=== PATIENT | female | born 1980 | race Caucasian/White ===

== ENCOUNTER 2019-05-15 16:37 | Outpatient (CLI) | payer OTHER, SELFPAY ==
--- NOTE | ~2019-05-15 | XR_ITS ---
[[id number] ] INDICATION: Left rib pain TECHNIQUE: Frontal projection of the upper left ribs, frontal projection of the lower left ribs, obli que projection of all the left ribs, frontal inspiratory chest x-ray for interpretation. FINDINGS: There are no displaced rib fractures identified. There are no soft tissue abnormality see n. The lungs are clear. Calcified granuloma right midlung. IMPRESSION: 1:No displaced rib fractures. Reviewed, dictated and finalized at location A.
[2019-05-15 16:54] LABS: Basophils Absolute Auto 0.03 K/mm3 (0.00-0.10); Basophils Percent Auto 0.4 % (0.0-1.0); Eosinophils Absolute Auto 0.07 K/mm3 (0.02-0.50); Hematocrit 45.4 % (35.0-49.0); Hemoglobin 15.5 g/dL (12.0-15.0); Immature Granulocyte Absolute 0.02 K/mm3 (0.00-0.00); Immature Granulocyte Percent A 0.3 % (0.0-0.0); Lymphocytes Absolute Auto 2.02 K/mm3 (1.10-4.50); Lymphocytes Percent Auto 30.2 % (18.0-42.0); Mean Corpuscular HGB Conc 34.1 g/dL (32.0-36.0); Mean Corpuscular Hemoglobin 30.6 pg (27.0-31.0); Mean Corpuscular Volume 89.7 fL (78.0-102.0); Mean Platelet Volume 9.9 fl (9.2-11.8); Monocytes Absolute Auto 0.51 K/mm3 (0.10-0.90); Monocytes Percent Auto 7.6 % (2.0-11.0); Neutrophils Percent Auto 60.5 % (50.0-70.0); Platelet Count Result 302 K/mm3 (150-420); Red Blood Count 5.06 M/mm3 (4.20-5.40); White Blood Count 6.7 K/mm3 (4.8-10.8)
[2019-05-15 17:07] LABS: D Dimer 0.22 mg/L (0.19-0.50)
[2019-05-15 17:22] LABS: Alanine Aminotransferase 35 U/L (14-59); Alkaline Phosphatase 98 U/L (46-116); Anion Gap 12.4 mmol/L (7-16); Aspartate Amino Transferase 22 U/L (15-37); Bilirubin,Total 0.4 mg/dL (0.00-1.00); Blood Urea Nitrogen 9 mg/dL (7-18); Calcium 9.2 mg/dL (8.5-10.1); Carbon Dioxide 29 mmol/L (21-32); Chloride 104 mmol/L (98-108); Estimated Glomerular Filt Rate > 60; Glucose 101 mg/dL (70-99); Osmolality Calculated 290 mOsm/kg (285-295); Potassium 4.4 mmol/L (3.5-5.1); Sodium 141 mmol/L (136-145); Total Protein 7.4 g/dL (6.4-8.2)
== END 2019-05-15 16:38 | disposition home or self-care (01) ==
LOC: CHSLAB 16:43
PROVIDERS: PCP Family Medicine; Visit Provider Physician Assistant
DX: R06.02 Shortness of breath (principal); R07.81 Pleurodynia
CPT/HCPCS: 36415; 71101; 80053; 85025; 85380

== ENCOUNTER 2019-08-25 07:49 | Outpatient (CLI) | payer OTHER, SELFPAY ==
--- NOTE | ~2019-08-25 | US_ITS ---
US right upper quadrant DATE: 08/25/2019 08:24 INDICATION: Mid to right upper abdominal pain TECHNIQUE: Real-time imaging of liver, pancreas, gallbladder areas COMPARISON: None FINDINGS: There is a hyperechoic approximately 1.4 x 1.5 x 1.2 cm hepatic mass consistent with cavern ous hemangioma. The liver is otherwise unremarkable. Normal hepatopedal portal venous flow direction. No pancreatic mass lesion is evident. There are shadowing up to 8mm filling defects of the gallbladder neck consistent with cholelithiasis . No gallbladder wall thickening or pericholecystic fluid is evident. Negative sonographic Azevedo's s ign. The common bile duct measures 3 mm, normal. IMPRESSION: Cholelithiasis 1.5 cm hepatic cavernous hemangioma Reviewed, dictated and finalized at Location A. Reviewed, dictated and finalized at location B.
== END 2019-08-25 07:50 | disposition home or self-care (01) ==
PROVIDERS: PCP Family Medicine; Visit Provider Nurse Practitioner Psychiatric/Mental Health
DX: R10.11 Right upper quadrant pain (principal)
CPT/HCPCS: 76705

== ENCOUNTER 2019-09-20 10:44 | Outpatient (CLI) | payer OTHER, SELFPAY ==
[2019-09-20 11:02] LABS: Basophils Absolute Auto 0.02 K/mm3 (0.00-0.10); Basophils Percent Auto 0.4 % (0.0-1.0); Eosinophils Absolute Auto 0.05 K/mm3 (0.02-0.50); Eosinophils Percent Auto 0.9 % (1.0-6.0); Hematocrit 43.1 % (35.0-49.0); Hemoglobin 14.7 g/dL (12.0-15.0); Immature Granulocyte Absolute 0.02 K/mm3 (0.00-0.00); Immature Granulocyte Percent A 0.4 % (0.0-0.0); Immature Reticulocyte Fraction 8.4 % (2.0-16.52); Lymphocytes Absolute Auto 1.67 K/mm3 (1.10-4.50); Mean Corpuscular HGB Conc 34.1 g/dL (32.0-36.0); Mean Corpuscular Hemoglobin 31.3 pg (27.0-31.0); Mean Corpuscular Volume 91.9 fL (78.0-102.0); Mean Platelet Volume 10.4 fl (9.2-11.8); Monocytes Absolute Auto 0.44 K/mm3 (0.10-0.90); Monocytes Percent Auto 7.9 % (2.0-11.0); Neutrophils Absolute Auto 3.4 K/mm3 (1.7-7.2); Neutrophils Percent Auto 60.4 % (50.0-70.0); Platelet Count Result 269 K/mm3 (150-420); Red Blood Count 4.69 M/mm3 (4.20-5.40); Red Cell Distribution Width 11.9 % (11.6-14.4); Reticulocyte Hemoglobin Conten 36.3 pg (28.0-35.0); Reticulocyte Percent 1.83 % (0.50-1.50); Reticulocytes Absolute 0.09 M/mm3 (0.02-0.1); White Blood Count 5.6 K/mm3 (4.8-10.8)
[2019-09-20 12:27] LABS: Alanine Aminotransferase 58 U/L (14-59); Albumin Level 3.8 g/dL (3.4-5.0); Alkaline Phosphatase 91 U/L (46-116); Anion Gap 9 mmol/L (8-16); Aspartate Amino Transferase 31 U/L (15-37); Bilirubin,Total 0.6 mg/dL (0.00-1.00); Blood Urea Nitrogen 10 mg/dL (7-18); Calcium 8.8 mg/dL (8.5-10.1); Carbon Dioxide 26 mmol/L (21-32); Chloride 104 mmol/L (98-108); Cholesterol 156 mg/dL (0-200); Estimated Glomerular Filt Rate > 60; Ferritin 205 ng/mL (8-252); Glucose 98 mg/dL (70-99); HDL Direct 51 mg/dL (40-60); Iron 116 ug/dL (50-170); LDL Cholesterol Calculated 88 mg/dL (<130); Osmolality Calculated 287 mOsm/kg (285-295); Percent Iron Saturation 38 % (12-57); Potassium 4.4 mmol/L (3.5-5.1); Sodium 139 mmol/L (136-145); Thyroid Stimulating Hormone 1.39 uIU/mL (0.36-3.74); Total Protein 7.2 g/dL (6.4-8.2); Triglycerides 85 mg/dL (0-150); Vitamin B12 305 pg/mL (193-986)
[2019-09-20 12:29] LABS: Folic Acid > 20.0 ng/mL (8.6->20)
[2019-09-23 11:52] LABS: Vitamin D 25 Hydroxy 24 ng/mL (30-100)
== END 2019-09-20 10:45 | disposition home or self-care (01) ==
LOC: CHSLAB 10:46
PROVIDERS: PCP Family Medicine; Visit Provider Family Medicine
DX: R53.83 Other fatigue (principal); Z13.220 Encounter for screening for lipoid disorders; Z13.29 Encounter for screening for other suspected endocrine disorder; E55.9 Vitamin D deficiency, unspecified
CPT/HCPCS: 36415; 80053; 80061; 82306; 82607; 82728; 82746; 83540; 83550; 84443; 85025; 85046

== ENCOUNTER 2019-10-01 00:27 | Outpatient (CLI) | payer OTHER, SELFPAY ==
[2019-10-01 18:19] LABS: SARS-CoV-2 RNA PCR Negative
== END 2019-10-01 00:28 | disposition home or self-care (01) ==
LOC: ANHCOVIDDT 00:27
PROVIDERS: PCP Family Medicine; Visit Provider Internal Medicine Gastroenterology
DX: Z01.812 Encounter for preprocedural laboratory examination (principal); Z20.828 Contact with and (suspected) exposure to other viral communicable diseases
CPT/HCPCS: 87635; C9803; U0003

== ENCOUNTER 2019-10-03 01:30 | Day surgery (SDC) | payer OTHER, SELFPAY ==
[2019-09-29 08:51] VITALS: BMI 36.6
[2019-10-03 11:16] VITALS: BP 128/103; PULSE 97; RESP 16; TEMP 36.8; O2SAT 98; BMI 36.8
[2019-10-03] MEDS: LACTATED RINGERS 1,000 ML 150 ML IV CONT (11:32)
--- NOTE | 2019-10-03 12:01 | WPDANESEPPF ---
Anes - Initial Pre Proc Eval Procedure: Operation Date: 10/03/19 12:30 Proposed Procedures p Esophagogastroduodenoscopy & Screening Colonoscopy - Antoni Veliz MD Date/Time: 10/03/19 12:01 Surgeon: Antoni Veliz MD Pre Op Diagnosis: RUQ Pain/ Fam Hx Colon Ca Patient Data Age: 39 Gender: F Height: 5 ft 2 in Weight: 91.2 kg Last Vital Signs Temp 98.2 F 10/03/19 11:16 Pulse 97 10/03/19 11:16 Resp 16 10/03/19 11:16 BP 128/103 H 10/03/19 11:16 Pulse Ox 98 10/03/19 11:16 Allergies Allergy/AdvReac Type Severity Reaction Status Date / Time No Known Allergies Allergy Unknown Verified 10/03/19 11:16 Home Medications Medication Instructions Recorded Confirmed Type lisinopril 10 mg tablet 10 mg PO DAILY 09/04/19 10/03/19 History peg 3350-electrolytes 236 240 ml PO Q10M #4000 ml 09/23/19 Rx gram-22.74 gram-6.74 gram-5.86 gram solution ergocalciferol (vitamin D2) 1,250 mcg PO WEEKLY 09/29/19 10/03/19 History [Vitamin D2] Patient hx anesthesia problems: none Family hx anesthesia problems: none PMFSH Past Medical History Medical History (Updated 10/03/19 @ 12:03 by Abiodun Amor MD) Alternating constipation and diarrhea Cholelithiasis Family history of Forde syndrome Obesity RUQ pain Anes - Eval Final PreProcedure Day of Procedure 10/03/19 12:01 Patient weight: obese Heart: regular rate and rhythm Lungs: clear to auscultation Airway: Mallampati scale class II Neurological: alert and oriented Last oral intake: >/= 8 hours ASA classification: II Emergent: no Anesthetic plan: proceed Anesthesia type and monitoring: general GIVS and standard monitoring Informed Consent: The patient's anesthetic plan and its attendant risks and benefits were discussed with the patient/family/POA. Questions were solicited and answers provided to the satisfaction of the patient/family/POA.
--- NOTE | 2019-10-03 12:37 | WPDHPUPDATE1 ---
History and Physical Update Update Date/Time: 10/03/19 12:37 History and Physical has been reviewed, including an updated exam of the patient. There are NO changes in the patient's condition. Risks, benefits, and alternatives have been discussed and questions answered. Patient agrees to proceed with procedure.
[2019-10-03 13:03] VITALS: BP 111/77; PULSE 84; RESP 23; O2SAT 100
[2019-10-03 13:13] VITALS: BP 127/89; PULSE 76; RESP 20; O2SAT 100
[2019-10-03 13:23] VITALS: BP 120/76; PULSE 68; RESP 21; O2SAT 100
== END 2019-10-03 13:38 | disposition home or self-care (01) ==
PROVIDERS: PCP Family Medicine; Visit Provider Internal Medicine Gastroenterology
PROC: 0DJ08ZZ Inspection of Upper Intestinal Tract, Via Natural or Artificial Opening Endoscopic (ICD-10-PCS; CPT 43235; principal; 2019-10-03 12:30)
DX: K29.50 Unspecified chronic gastritis without bleeding (principal); K44.9 Diaphragmatic hernia without obstruction or gangrene; K64.8 Other hemorrhoids; R10.11 Right upper quadrant pain; R19.8 Other specified symptoms and signs involving the digestive system and abdomen; K80.20 Calculus of gallbladder without cholecystitis without obstruction; Z80.0 Family history of malignant neoplasm of digestive organs
CPT/HCPCS: 45378; 43239; 88305; J2001; J2704; J7120

== ENCOUNTER 2020-03-29 15:55 | Outpatient (RCR) | payer OTHER, SELFPAY ==
--- NOTE | 2020-03-29 16:38 | PTOPEVAL ---
Thank you for referring Megan Doherty to [facility].? The patient is scheduled to be seen for therapy? ___1_x/week for 4 visits. Please review, sign, date and return this plan of care ROSARIO. I agree with and certify that the following plan of care is medically necessary. Referring Physician Date Admitting Provider: Attending Provider: Remberto Menon, Referring Provider: *PT Outpatient Evaluation Start: 03/29/20 16:04 Freq: Status: Active Protocol: Document 03/29/20 16:04 SUZAN (Rec: 03/29/20 16:38 SUZAN [email or web address]) Therapy Assessment Status Assessment Status Assessment Status Evaluation Outpatient Past Medical History Neurological History Hx Neurological Disorders No Significant History Cardiovascular History Hx Hypertension Yes Respiratory History Hx Respiratory Disorders No Significant History Gastrointestinal History Hx Other Gastrointestinal Disorders Yes: DIARRHEA/CONSTIPATION Genitourinary History Hx Genitourinary Disorders No Significant History Musculoskeletal History Hx Musculoskeletal Disorders No Significant History Hematological History Hx Hematological Disorders No Significant History Endocrine History Hx Endocrine Disorders No Significant History HEENT History Hx HEENT Disorders No Significant History Integumentary History Hx Skin Disorders No Significant History Reproductive History Hx Section Yes Hx Tubal Ligation Yes Hx Other Reproductive Disorders Yes: 01/2020 UTERINE ABLATION Psychosocial History Hx Psychiatric Disorders No Significant History Pain History History of Any Previous or Ongoing No Significant History Instance of Pain Anesthesia History Hx Anesthesia Reactions No Significant History Other History Hx Other Medical Conditions Yes: MTHFR ( Methylenetetrahydrofolate reductase), FAMILY HX OF VINCENT SYNDROME Evaluation Information Problem Diagnosis lumbar radiculopathy Onset 02/28/20 Subjective Information Pt. reports woke on sunday Query Text:As Reported By Patient/ morning with mild back pain. Family She reports that the following day she developed numbness and tingling into the right leg. She continues to note the numbness on the outside of the right leg. She reports that the pain in the lower leg is constant. She reports that some weakness with lifting the right foot. She
== END 2020-04-26 17:11 | disposition home or self-care (01) ==
LOC: CHSPT 15:55
PROVIDERS: PCP Family Medicine; Visit Provider Family Medicine
DX: M54.16 Radiculopathy, lumbar region (principal)
CPT/HCPCS: 97014; 97110; 97161; G0283

== ENCOUNTER 2022-02-07 08:22 | Outpatient (CLI) | payer BC, SELFPAY ==
--- NOTE | ~2022-02-07 | MM_ITS ---
EXAMINATION: MM screening [facility] BI w nikko HISTORY: Screening mammogram TECHNIQUE: Craniocaudal and mediolateral oblique 3-D tomosynthesis images were obtained and synthetic 2-D images were generated. CAD analysis was submitted and interpreted. COMPARISON: 08/17/2014 BREAST PARENCHYMAL COMPOSITION: There are scattered areas of fibroglandular density. FINDINGS: No suspicious mass, calcification, or architectural distortion are identified in either noble ast to suggest malignancy. There has been no suspicious interval change. IMPRESSION: 1. No mammographic evidence of malignancy. 2. Recommend routine screening mammography in one year. BI-RADS Category 1: Negative Reviewed, dictated and finalized at location A. ON PICTURE NARRATOR
== END 2022-02-07 08:23 | disposition home or self-care (01) ==
LOC: CHSIMG 08:24
PROVIDERS: Visit Provider Obstetrics & Gynecology
DX: Z12.31 Encounter for screening mammogram for malignant neoplasm of breast (principal)
CPT/HCPCS: 77063; 77067

== ENCOUNTER 2022-03-28 10:58 | Outpatient (CLI) | payer BC, SELFPAY | END 2022-03-28 10:59 | disposition home or self-care (01) | PROVIDERS: PCP Specialist; Visit Provider Specialist | DX: D22.5 Melanocytic nevi of trunk (principal) | CPT/HCPCS: 88305 ==

== ENCOUNTER 2022-11-14 15:32 | Emergency (ER) | payer OTHER, SELFPAY ==
[2022-11-14 15:32] VITALS: BP 168/112; PULSE 99; RESP 16; TEMP 36.2; O2SAT 96
--- NOTE | 2022-11-14 15:36 | ED.BACK ---
HPI - Back Pain/Injury General Chief Complaint: Back Pain/Injury Stated Complaint: lower back and right leg pain Time Seen by Provider: 11/14/22 15:36 Source: patient and RN notes reviewed Mode of arrival: ambulatory Limitations: no limitations History of Present Illness HPI Narrative: Patient has a history of a herniated d. She began having back pain suddenly 1 week ago. She went to see her primary care received a steroid injection and was started on a combination of tramadol and Flexeril. She comes in today because she said those meds are not working. In the past he has had spinal injections in her back. She says she has an appointment to do that next week. MD elicited complaint: back pain Pertinent past history: prior back pain ( Herniated disc) Onset (ago): week(s) (1) Timing: intermittent Severity: moderate Similar Symptoms Previously: Yes Quality: sharp and stabbing Location: lumbar spine Radiation: right upper leg Exacerbating factors: movement Relieving factors: supine Context: unknown Associated symptoms: denies other symptoms Treatments prior to arrival: prescription analgesics (tramadol) and other (fexeril) Related Data Home Medications Medication Instructions Recorded Confirmed cyclobenzaprine 10 mg tablet 10 mg PO TID PRN Muscle Spasm 11/14/22 11/14/22 tramadol 50 mg tablet 50 mg PO DAILY 11/14/22 11/14/22 Allergies Allergy/AdvReac Type Severity Reaction Status Date / Time No Known Allergies Allergy Unknown Verified 09/13/22 09:52 Review of Systems Review of Systems: All systems reviewed & are unremarkable except as noted in HPI and below PMFSH Past Medical History Medical History (Updated 11/14/22 @ 16:11 by Enrique Miller MD) Alternating constipation and diarrhea Cholelithiasis Family history of Forde syndrome Herniated disc History of chlamydia 2005 Obesity RUQ pain Screening mammogram, encounter for Surgical History Surgical History Delivery by section xs 2 H/O colposcopy with cervical biopsy History of dilation and curettage demise History of endometrial ablation History of tubal ligation Status post hysteroscopic ablation of endometrium Family History Family History Mother Forde syndrome Other Carcinoma of colon Social History Social History Smoking status: Never smoker Alcohol intake: current Alcohol use details: socially 5 per month Substance use: never Substance use type: does not use Lack of Transportation: No Lack of Food: Never True Current Housing: I Have Housing Concerned About Future Housing: No Difficulty Paying Gas/Electric Bills: No Difficulty Paying for Meds: No Currently Unemployed: No Education: Bachelor's Degree Difficulty w/ Childcare or Family Care: No Living arrangements: with family Additional living arrangements comments: Occupation/Education: occupation Additional occupation/education comments: teacher Gender identity (if verbalized by the patient): Female Sexual Orientation (if Verbalized by the Patient): Straight or Heterosexual Exam Const: General: no acute distress, alert and ill appearing acutely Nutritional Appearance: well nourished and obese Orientation/consciousness: patient oriented x3 Limitations: no limitations HENMT: Head: normal to inspection Ears: external ears normal Face/Nose/Sinus: Normal external nose present Face and sinus: normal facial exam Mouth: Yes moist mucous membranes Eyes: Conjunctivae: conjunctivae normal Pupils: Equal, round and reactive pupils present EOM: EOMs intact bilaterally Neck: Neck: normal visual inspection Resp: Effort & Inspection: normal respiratory effort Auscultation: clear to auscultation bilaterally Cardio: Rate: regular rate Rhythm: regular rhythm GI:
[2022-11-14] MEDS: KETOROLAC (*BKC) 60 MG/2 ML VIAL IM (16:18)
[2022-11-14 16:44] VITALS: BP 169/110; PULSE 77; RESP 18; O2SAT 98
== END 2022-11-14 16:48 | disposition home or self-care (01) ==
PROVIDERS: Emergency Provider Emergency Medicine; PCP Family Medicine
DX: M51.26 Other intervertebral disc displacement, lumbar region (principal)
CPT/HCPCS: 96372; 99283; J1885

== ENCOUNTER 2022-12-25 17:06 | Emergency (ER) | payer OTHER, SELFPAY ==
--- NOTE | 2022-12-25 17:11 | ED.BACK ---
HPI - Back Pain/Injury General Chief Complaint: Back Pain/Injury Stated Complaint: sciatia pain Time Seen by Provider: 12/25/22 17:09 Source: patient and family Mode of arrival: ambulatory History of Present Illness HPI Narrative: 42 years old white female came to the emergency room by private car complaining of right lower back pain radiating to her right buttock and right thigh. Similar to her previous history of sciatica. Patient was seen by orthopedic recently and had a cortisone injection on December 08 with good improvement, pain is back again started yesterday. Patient is scheduled to see her orthopedic tomorrow. Patient denies bowel dysfunction, bladder dysfunction, altered sensation, focal weakness, or saddle numbness, Related Data Home Medications Medication Instructions Recorded Confirmed cyclobenzaprine 10 mg tablet 10 mg PO TID PRN Muscle Spasm 11/14/22 11/14/22 tramadol 50 mg tablet 50 mg PO DAILY 11/14/22 11/14/22 Allergies Allergy/AdvReac Type Severity Reaction Status Date / Time No Known Allergies Allergy Unknown Verified 09/13/22 09:52 Review of Systems Review of Systems: All systems reviewed & are unremarkable except as noted in HPI and below PMFSH Past Medical History Medical History Alternating constipation and diarrhea Cholelithiasis Family history of Forde syndrome Herniated disc History of chlamydia 2005 Obesity RUQ pain Screening mammogram, encounter for Surgical History Surgical History Delivery by section xs 2 H/O colposcopy with cervical biopsy History of dilation and curettage demise History of endometrial ablation History of tubal ligation Status post hysteroscopic ablation of endometrium Family History Family History Mother Forde syndrome Other Carcinoma of colon Social History Social History Smoking status: Never smoker Alcohol intake: current Alcohol use details: socially 5 per month Substance use: never Substance use type: does not use Lack of Transportation: No Lack of Food: Never True Current Housing: I Have Housing Concerned About Future Housing: No Difficulty Paying Gas/Electric Bills: No Difficulty Paying for Meds: No Currently Unemployed: No Education: Bachelor's Degree Difficulty w/ Childcare or Family Care: No Living arrangements: with family Additional living arrangements comments: Occupation/Education: occupation Additional occupation/education comments: teacher Gender identity (if verbalized by the patient): Female Sexual Orientation (if Verbalized by the Patient): Straight or Heterosexual Exam Narrative: General appearance: Well-developed, well-nourished Skin: Normal color Neck: Supple, nontender Chest and respiratory: Airway patent, no respiratory distress, no accessory muscle use Heart: Regular rate/rhythm Abdomen: Soft, nontender, no organomegaly, quiet bowel sounds Vascular: Normal peripheral pulses, normal capillary refill. Musculoskeletal: Normal range of motion, diffuse tenderness at the center of the right buttock, no bruises, no swelling, no rash Neurologic: Alert and oriented ?3, BUSINESS FUNCTIONAL ANALYST is normal as tested, no gross motor deficit, negative right leg raising test Course Vital Signs Vital signs: Vital Signs Temperature 36.6 C 12/25/22 17:12 Pulse Rate 89 12/25/22 17:12 Respiratory Rate 18 12/25/22 17:12 Blood Pressure 119/67 12/25/22 17:12 Pulse Oximetry
[2022-12-25 17:12] VITALS: BP 119/67; PULSE 89; RESP 18; TEMP 36.6; O2SAT 98
[2022-12-25] MEDS: diazePAM (*CRX) 5 MG TABLET PO (17:34)
[2022-12-25] MEDS: KETOROLAC (*BKC) 60 MG/2 ML VIAL IM (17:34)
[2022-12-25] MEDS: ONDANSETRON HCL ODT 4 MG TABLET PO (17:34)
[2022-12-25] MEDS: HYDROmorphone HCL INJ (*CRX) 2 MG/ML VIAL 1 MG IM (17:35)
[2022-12-25 18:12] VITALS: BP 115/70; PULSE 88; RESP 18; O2SAT 99
[2022-12-25 18:19] VITALS: TEMP 36.7
== END 2022-12-25 18:19 | disposition home or self-care (01) ==
PROVIDERS: Emergency Provider Emergency Medicine; PCP Family Medicine
DX: M54.16 Radiculopathy, lumbar region (principal)
CPT/HCPCS: 96372; 99284; A9270; J1100; J1170; J1885

== ENCOUNTER 2023-04-16 07:13 | Outpatient (CLI) | payer OTHER, SELFPAY ==
--- NOTE | ~2023-04-16 | MM_ITS ---
EXAMINATION: MM screening [facility] BI w nikko HISTORY: Screening mammogram TECHNIQUE: Craniocaudal and mediolateral oblique 3-D tomosynthesis images were obtained and synthetic 2-D images were generated. CAD analysis was submitted and interpreted. COMPARISON: 02/07/2022, 09/04/2014 BREAST PARENCHYMAL COMPOSITION:Not Dense. There are scattered areas of fibroglandular density. FINDINGS: Stable benign mass or lymph node at the upper, outer right breast. No suspicious mass, calc ification, or architectural distortion are identified in either breast to suggest malignancy. There h as been no suspicious interval change. IMPRESSION: No mammographic evidence of malignancy. Recommend routine screening mammography in one year. BI-RADS Category 2: Benign finding(s). Reviewed, dictated and finalized at location .
== END 2023-04-16 07:14 | disposition home or self-care (01) ==
LOC: CHSIMG 07:16
PROVIDERS: PCP Family Medicine; Visit Provider Obstetrics & Gynecology
DX: Z12.31 Encounter for screening mammogram for malignant neoplasm of breast (principal)
CPT/HCPCS: 77063; 77067

== ENCOUNTER 2024-03-17 15:30 | Outpatient (CLI) | payer OTHER, SELFPAY ==
--- NOTE | ~2024-03-17 | CT_ITS ---
EXAMINATION: CT abdomen pelvis w con DATE: 03/17/2024 15:58 INDICATION: Right upper quadrant abdominal pain. TECHNIQUE: Computed tomography (CT) of the abdomen and pelvis was performed with 100 mL Omnipaque 350 intravenous contrast. Automated exposure control and iterative reconstruction technique were employe d. The dose-length product was 1021.11 mGy-cm. COMPARISON: Abdomen ultrasound 08/25/2019 FINDINGS: The visualized portions of lung bases demonstrate mild atelectasis. A calcified right lung nodule is consistent with old granulomatous disease. No pleural effusion. The heart size is normal. N o pericardial effusion. There is a 16 mm mass in the liver, stable from 08/25/2019, likely benign. The re is a 5 mm cyst in the liver. There is a gallstone in the gallbladder neck. The gallbladder is norm al in size. Gallbladder wall thickening is noted. The spleen, pancreas, adrenal glands, and kidneys a re normal. There are no dilated loops of bowel. The appendix is normal. There are no pathologically e nlarged lymph nodes. There is no free intraperitoneal fluid. There is moderate lumbar spondylosis. IMPRESSION: 1. Acute cholecystitis. Reviewed, dictated and finalized at location A. CHUTE INSPECTOR IMPRESSION: 1. Acute cholecystitis.
== END 2024-03-17 15:31 | disposition home or self-care (01) ==
LOC: MICIMG 15:30
PROVIDERS: PCP Family Medicine; Visit Provider Family Medicine
DX: K81.9 Cholecystitis, unspecified (principal)
CPT/HCPCS: 74177; Q9967

== ENCOUNTER 2024-03-17 16:53 | Emergency (ER) | payer OTHER, SELFPAY ==
--- OUTSIDE RECORDS SUMMARY | 2024-03-17 16:56 | XMS_ITS | Referral Summary ---
Author Organization [facility] Address [address] [address] Care Team Providers Care Traveling Buyer Name Role Phone Remberto Menon MD Primary Care Provider Source Comments [facility],non-owned Affiliates and Associated Physician Practices is amultiple site organization consisting of ambulatory clinics and hospital sitesin [place], [place], [place] and [place]. This disclosure is being madepursuant to the Care Everywhere program and may not contain all information available regarding this patient. Last updated 17.[facility] Social History Tobacco Use Types Packs/Day Years Used Date Smoking Tobacco: Never Assessed Sex and Gender Information Value Date Recorded Sex Assigned at Not on file Gender Identity Not on file Sexual Orientation Not on file Plan of Treatment Not on file Care Teams Traveling Buyer Relationship Specialty Start Date End Date Remberto Menon MD [address] [place] [phone] PCP - General 04/13/22
--- OUTSIDE RECORDS SUMMARY | 2024-03-17 16:56 | XMS_ITS | Clinical Summary ---
Author Organization [facility] Address [facility] [place] [address] Care Team Providers Care Technical Sales Representatives Name Role Phone Chely Locke MD Primary Care Provider [phone] Allergies No known active allergies Medications Multiple Vitamin (MULTIVITAMIN ADULT) Tab Take 1 tablet by mouth daily. Active vitamin D3, cholecalciferol, 10 mcg tablet Take 1 tablet (10 mcg total) by mouth daily. Active Active Problems Problem Noted Date Diagnosed Date Trochanteric bursitis of right hip 01/10/2023 Lumbar radiculopathy 01/04/2023 Radiculopathy, lumbar region 08/06/2020 Social History Tobacco Use Types Packs/Day Years Used Date Smoking Tobacco: Never Smokeless Tobacco: Never Alcohol Use Standard Drinks/Week Comments Yes 0 (1 standard drink = 0.6 oz pur e alcohol) socially Comments No Sex and Gender Information Value Date Recorded Sex Assigned at Not on file Legal Sex Female 5:51 PM DIRECTOR OF MARKETING Gender Identity Not on file Sexual Orientation Not on file Last Filed Vital Signs Vital Sign Reading Time Taken Comments Blood Pressure 151/83 01/19/2023 1:16 PM DIRECTOR OF MARKETING Pulse 81 01/19/2023 1:16 PM DIRECTOR OF MARKETING Temperature 35.8 C (96.5 F) 01/19/2023 12:15 PM DIRECTOR OF MARKETING Respiratory Rate 16 01/19/2023 1:16 PM DIRECTOR OF MARKETING Oxygen Saturation 98% 01/19/2023 1:16 PM DIRECTOR OF MARKETING Inhaled Oxygen Concentration - - Weight 88.5 kg (195 lb) 01/16/2023 9:09 AM DIRECTOR OF MARKETING Height 157.5 cm (5' 2 ) 01/16/2023 9:09 AM DIRECTOR OF MARKETING Body Mass Index 35.67 01/16/2023 9:09 AM DIRECTOR OF MARKETING Plan of Treatment Health Maintenance Due Date Last Done Comments Cervical Cancer Screening Pa p Smear (Age 30 to 64) Every 3 Years 1981 Annual Physical 1984 Hepatitis C 08/13/1999 DTaP, Tdap and Td Vaccines ( 1 - Tdap) 2000 Hepatitis B Vaccines (1 of 3 - 19+ 3-dose series) 2000 Cervical Cancer Screening Pa p with HPV Testing (Age 30 to 64) Every 5 Years 08/13/2011 Cervical Cancer Screening wi th HPV 08/13/2011 Mammogram Screening 2021 COVID-19 Vaccine ( - 2023-2 5 season) 2023 03/20/2020, 02/21/2020 Influenza Adult (#1) 2023 HPV Vaccines Aged Out No longer eligi ble based on patient's age to complete this topic Meningococcal B Vaccine Aged Out No l onger eligible based on patient's age to complete this topic Meningococcal Vaccine Aged Out No gricelda ralf eligible based on patient's age to complete this topic Pneumococcal Vaccine: Pediatrics (0 to 5 Years) and At-Risk Patients (6 to 64 Years) Aged Out No longer eligible b ased on patient's age to complete this topic RSV Immunizations Under 20 Months Aged Out No longer eligible b ased on patient's age to complete this [place] [address] Care Teams Technical Sales Representatives Relationship Specialty Start Date End Date Chely Locke MD [address] [place] [phone] PCP - General FAMILY PRACTICE 01/10/23
--- OUTSIDE RECORDS SUMMARY | 2024-03-17 16:56 | XMS_ITS | Clinical Summary ---
Author Organization [facility] Address [address] [place] [address] Care Team Providers Care Pesticide Applicator Name Role Phone Remberto Menon MD Primary Care Provider [phone] Source Comments [facility],non-owned Affiliates and Associated Physician Practices is amultiple site organization consisting of ambulatory clinics and hospital sitesin [place], [place], [place] and [place]. This disclosure is being madepursuant to the Care Everywhere program and may not contain all information available regarding this patient. Last updated 17.[facility] [employer] Social History Tobacco Use Types Packs/Day Years Used Date Smoking Tobacco: Never Assessed Sex and Gender Information Value Date Recorded Sex Assigned at Not on file Gender Identity Not on file Sexual Orientation Not on file Plan of Treatment Health Maintenance Due Date Last Done Comments LIPID TESTING 1981 MAMMOGRAM 1981 PAP SMEAR 1981 HIV SCREENING 1996 HEPATITIS C SCREENING 08/08/1999 DTAP/TDAP/TD VACCINES (1 - Tdap) 2000 HEPATITIS B VACCINE (1 of 3 - 19+ 3-dose series) 2000 COVID-19 VACCINE ( - 2023-2 5 season) 2023 INFLUENZA VACCINE (#1) 2023 DEPRESSION SCREENING 02/06/2024 ZOSTER VACCINE (1 of 2) 08/13/2031 HIB VACCINE Aged Out No longer eligi ble based on patient's age to complete this topic HPV VACCINE Aged Out No longer eligi ble based on patient's age to complete this topic MENINGOCOCCAL (Group B) VACCINE Aged Out No longer eligible based on patient's age to complete this topic MENINGOCOCCAL VACCINE Aged Out No gricelda ralf eligible based on patient's age to complete this topic PNEUMOCOCCAL VACCINE Aged Out No long er eligible based on patient's age to complete this topic Care Teams Pesticide Applicator Relationship Specialty Start Date End Date Remberto Menon MD [address] [place] [phone] PCP - General 04/13/22
--- OUTSIDE RECORDS SUMMARY | 2024-03-17 16:56 | XMS_ITS | Patient Health Summary ---
Author Organization [facility] Address [address] [place] [address] Care Team Providers Care Aluminum Pool Installer Name Role Phone Remberto Menon MD Primary Care Provider [phone] Note from [facility],non-owned Affiliates and Associated Physician Practices is amultiple site organization consisting of ambulatory clinics and hospital sitesin [place], [place], [place] and [place]. This disclosure is being madepursuant to the Care Everywhere program and may not contain all information available regarding this patient. Last updated 17.[facility] dakick Social History Tobacco Use Types Packs/Day Years Used Date Smoking Tobacco: Never Assessed Sex and Gender Information Value Date Recorded Sex Assigned at Not on file Gender Identity Not on file Sexual Orientation Not on file Procedures * SONOGRAM - COMPLETE(Performed 04/15/2010) Results * SONOGRAM - COMPLETE (04/15/2010 8:50 AM FACILITIES ASSISTANT) Anatomical Region Laterality Modality Other 04/15/2010 8:50 AM FACILITIES ASSISTANT Narrative 04/18/2010 12:26 PM CDT [facility] Evaluation and Treatment Unit PHONE: FAX: Pat. Name: WINDY BLACKWOOD Pat. No: [id number] Study Date: 04/15/2010 8:50am , Age: 07 1980, 29 Pregnancies: 2, Para 0101 LMP: 12/29/2009 GA by LMP: 15w2d GA by US: 13w3d GA Selected: 14w3d (From Known E) KSENIA: 10/11/2010 Referring MD: Layla Forde DO [place] Oven Operator: Liliana Hickman RDMS/venu Hist/Ind: R/O Head Abnormality MEASUREMENTS & AGE GROWTH EVALUATION Measurement GA Range Srce %for GA Ratios ----- ---- ------- BPD 2.3 cm 13w6d ([id number]) Hadl BPD 30% FL/BPD 0.43 HC 9.6 cm 14w3d (00j1y-39f9x) Hadl HC 48% FL/AC 0.18 AC 5.6 cm 12w3d (51i0b-83t0i) Hadl AC <05 HC/AC 1.72 (1.11 - 1.30* FL 1.0 cm 13w0d (35c2f-59v4m) Hadl FL <05 CI 0.71 HL 1.2 cm 13w1d (74t7g-83o9k) Christiano HL 28% GA for sonogram 13w3d (73a2a-95s2y) Weight Estimate: based on (HL,BPD,HC,AC,FL) Avg Weight: 66 gm (56-76) Hadlock : 0lbs, 2oz Heart Rate: 147.0 bpm CLINICAL SUMMARY Study Number: 1 On transabdominal and transvaginal ultrasounds, a zamorano fetus is identified in cephalic presentation. The measurements today are consistent with adequate size for the KSENIA provided. The KSENIA selected is based on an 8 week, prior ultrasound examination (confirmed). The amniotic fluid volume is within normal limits. The placenta is posterior, Grade 1. The head appears prominent, although it is not certain if this is due to early gestational age or beginning stage of hydrocephalus and associated abnormality. On some views there is a suspicion of congenital heart ds but not on all . The 14 week gestational age does limit accuracy of anomaly diagnoses as the anatomy was suboptimally visualized due to size and GA. The patient was advised that ultrasound does not allow detection of all structural or chromosomal abnormalities. IMPRESSION: There is a suspicion of a potential hydrocephalus and CHD but the findings are not diagnostic due to the early GA RECOMMEND: Follow up Quad screen and ultrasound in 2 weeks to reassess anatomy, specifically the head, and heart Simeon Sigala MD <Electronic Signature> 04/18/2010 12:25pm Ordering Provider Unlisted MD [facility] Care Teams Aluminum Pool Installer Relationship Specialty Start Date End Date Remberto Menon MD [address] [place] [phone] PCP - General 04/13/22
[2024-03-17 17:15] VITALS: BP 149/105; PULSE 95; RESP 17; TEMP 36.8; O2SAT 99
--- NOTE | 2024-03-17 17:38 | ED_ITS ---
HPI - Abdominal Pain General Chief Complaint: Abdominal Pain Stated Complaint: Gallstone Time Seen by Provider: 03/17/24 17:38 Source: patient Mode of arrival: ambulatory Limitations: no limitations History of Present Illness HPI narrative: right upper quadrant pain started at 2:30 a.m. aching radiating to her back associated with nausea. She denies any fever or chills or vomiting. Worse with laying down flat, a little better sitting up. Patient is telling me that she had similar symptoms at least 3 times since January 2024. Currently feeling much better, pain is 2/10 compared to 11/[address] scan of the abdomen and pelvis was ordered by her family physician and showed acute cholecystitis. Patient came to our hospital for further evaluation. Currently patient on vitamin supplements, does not smoke or drink or use drugs. Related Data Home Medications ?Medication ?Instructions ?Recorded ?Confirmed ?Last Taken ?Type cyclobenzaprine 10 mg tablet 10 mg PO TID PRN Muscle Spasm 11/14/22 11/14/22 Unknown History tramadol 50 mg tablet 50 mg PO DAILY 11/14/22 11/14/22 Unknown History Allergies Allergy/AdvReac Type Severity Reaction Status Date / Time No Known Allergies Allergy Unknown Verified 03/17/24 18:04 Review of Systems 2 Review of Systems: All systems reviewed & are unremarkable except as noted in HPI and below PMFSH Past Medical History Medical History Herniated disc Screening mammogram, encounter for History of chlamydia 2005 Obesity Alternating constipation and diarrhea Family history of Forde syndrome RUQ pain Cholelithiasis Surgical History Surgical History History of endometrial ablation History of tubal ligation History of dilation and curettage demise Delivery by section xs 2 H/O colposcopy with cervical biopsy Status post hysteroscopic ablation of endometrium Family History Family History Mother Forde syndrome Other Carcinoma of colon Social History Social History Smoking status: Never smoker Alcohol intake: current Alcohol use details: socially 5 per month Substance use: never Substance use type: does not use Lack of Transportation: No Lack of Food: Never True Current Housing: I Have Housing Concerned About Future Housing: No Difficulty Paying Gas/Electric Bills: No Difficulty Paying for Meds: No Currently Unemployed: No Education: Bachelor's Degree Difficulty w/ Childcare or Family Care: No Living arrangements: with family Additional living arrangements comments: Occupation/Education: occupation Additional occupation/education comments: teacher Gender identity (if verbalized by the patient): Female Sexual Orientation (if Verbalized by the Patient): Straight or Heterosexual Exam 2 Narrative: General appearance: Well-developed, well-nourished Skin: Normal color Head: Normocephalic, nontraumatic Eyes: Clear conjunctiva ENT: Oropharynx normal, ears normal, nose normal Neck: Supple, nontender Chest and respiratory: Airway patent, no respiratory distress, no accessory muscle use Heart: Regular rate/rhythm Abdomen: Soft, Mild tenderness right upper quadrant, positive Azevedo sign, no organomegaly, quiet bowel sounds Vascular: Normal peripheral pulses, normal capillary refill. Musculoskeletal: Normal range of motion, nontender back Neurologic: Alert and oriented ?3, FINANCE VICE PRESIDENT is normal as tested, no gross motor deficit Course Vital Signs Vital signs: Vital Signs Temperature 36.8 C 03/17/24 17:15 Pulse Rate 95 03/17/24 17:15 Respiratory Rate 17 03/17/24 17:15 Blood Pressure 149/105 H 03/17/24 17:15 Pulse Oximetry 99 03/17/24 17:15 Oxygen Delivery Room Air 03/17/24 17:15 Temperature 36.8 C 03/17/24 17:15 Pulse Rate 85 03/17/24 19:09 Respiratory Rate 18 03/17/24 19:09 Blood Pressure 148/65 H 03/17/24 19:09 Pulse Oximetry 98 03/17/24 19:09 Oxygen Delivery Room Air 03/17/24 19:09 MDM - Abdominal Pain MDM Narrative Medical decision making narrative: patient presents with 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 Vital signs Stable Physical examination showing slight tenderness right upper quadrant Differential diagnosis acute cholecystitis Blood workup today includes CBC, CMP, lipase showed WBC of 8.8 normal liver enzymes, normal bilirubin Urinalysis showed no evidence of infection Patient declined to be hospitalized or transferred to another facility and signed AMA. Patient is telling me that she is feeling good right now and she is planning to follow-up with a surgeon or a family physician in the morning. I declare that I have personally explained to the patient the risks and consequences involved in leaving this facility at this time. the benefits of continued treatment and/or hospitalization. And the alternatives. If any. to continued treatment and/or hospitalization. if applicable.I have not identified any psychosis, drugs, mental illness, or medical illness that alters decision- making capacity (reasoning abilities ). Differential Diagnosis Differential diagnosis: Likely other (Acute cholecystitis) Medical Records Attestation: I reviewed the patient's medical records. Lab Data Attestation: I reviewed the patient's lab results. 03/17/24 18:02 03/17/24 18:02 Labs: Lab Results 03/17/24 03/17/24 Range/Units 18:02 18:20 WBC 8.8 (4.8-10.8) K/mm3 RBC 5.04 (4.20-5.40) M/mm3 Hgb 15.2 H (12.0-15.0) g/dL Hct 45.8 (35.0-49.0) % MCV 90.9 (78.0-102.0) fL MCH 30.2 (27.0-31.0) pg MCHC 33.2 (32-36) g/dL RDW 12.1 (11.6-14.4) % Plt Count 334 (150-420) K/mm3 MPV 9.8 (9.2-11.8) fl Immature Gran % (Auto) 0.1 H (0.0-0.0) % Neut % (Auto) 68.4 (50.0-70.0) % Lymph % (Auto) 23.6 (18.0-42.0) % [place] % (Auto) 6.6 (2.0-11.0) % Eos % (Auto) 0.8 L (1.0-6.0) % Baso % (Auto) 0.5 (0.0-1.0) % Lymph # (Auto) 2.08 (1.10-4.50) K/mm3 [place] # (Auto) 0.58 (0.10-0.90) K/mm3 Eos # (Auto) 0.07 (0.02-0.50) K/mm3 Baso # (Auto) 0.04 (0.00-0.10) K/mm3 Abs Immat Gran (auto) 0.01 H (0.00-0.00) K/mm3 Absolute Neuts (auto) 6.04 (1.70-7.20) K/mm3 Absolute Nucleated RBC 0.00 (0.00-0.00) K/mm3 Nucleated RBC % 0.0 (0-0.0) % Sodium 139 (136-145) mmol/L Potassium 4.1 (3.5-5.1) mmol/L Chloride 103 (98-108) mmol/L Carbon Dioxide 30 (21-32) mmol/L Anion Gap 6 (4-12) mmol/L BUN 9 (7-18) mg/dL Creatinine 0.89 (0.55-1.02) mg/dL Estim Creat Clear Calc 74 ml/min Estimated GFR > 60 (59 - ) Glucose 102 H (70-99) mg/dL Calculated Osmolality 286 (285-295) mOsm/kg Calcium 9.8 (8.5-10.1) mg/dL Total Bilirubin 0.3 (0.00-1.00) mg/dL AST 11 L (15-37) U/L ALT 25 (14-59) U/L Alkaline Phosphatase 93 (46-116) U/L Total Protein 7.5 (6.4-8.2) g/dL Albumin 3.8 (3.4-5.0) g/dL Lipase 24 (16-77) U/L Urine Color Light yellow (Yellow) Urine Appearance Clear (Clear) Urine pH 6.0 (5.0-8.0) Ur Specific [place] <= 1.005 L (1.010-1.020) Urine Protein Negative (Negative) Urine Glucose (UA) Negative (Negative) Urine Ketones Negative (Negative) Ur Blood (Man) 1+ H (Negative) Urine Nitrate Negative (Negative) Urine Bilirubin Negative (Negative) Urine Urobilinogen 0.2 (0.2-1.0) mg/dL Leukocyte Esterase Rfl Negative (Negative) MANOLO/UL Urine RBC 3-5 H (0-2) /hpf Urine WBC 0-3 (0-3) /hpf Ur Squamous Epith Cells Rare (Few) /hpf Urine Bacteria Trace (None) /hpf Critical Care Time Critical Care Time Critical Care Time: No Discharge Plan Discharge Clinical Impression: Acute cholecystitis Patient Disposition: Left Against Medical Advice Condition: Stable Instructions: Antibiotic Form, Cholecystitis (ED) Additional Instructions: Return if symptoms are worsening , call DR , take Tylenol as as needed for aches and pain, continue home medications. Patient Language: Tajik Prescriptions: New ciprofloxacin HCl [Cipro] 500 mg tablet 500 mg PO Q12H Qty: 20 0RF ondansetron HCl 4 mg tablet 4 mg PO Q4H Qty: 10 0RF Rx Instructions: 1st dose 1-2 hr before radiation hydrocodone-acetaminophen 5-325 mg tablet 1 tablet PO Q4H Qty: 20 0RF No Action methylprednisolone [Medrol ([place])] 4 mg tablets,dose pack See Rx Instructions PO .COMPLEX Qty: 21 0RF Rx Instructions: orally per package directions cyclobenzaprine 10 mg tablet 10 mg PO TID PRN (Reason: Muscle Spasm) tramadol 50 mg tablet 50 mg PO DAILY nabumetone 750 mg tablet 750 mg PO BID 10 Days Qty: 20 0RF Follow-up/Referrals: Suyapa Childers MD [Physician] - 03/18/24 Chucky,Chely Billy MD [Primary Care Provider] -
[2024-03-17 18:05] LABS: Basophils Absolute Auto 0.04 K/mm3 (0.00-0.10); Basophils Percent Auto 0.5 % (0.0-1.0); Eosinophils Absolute Auto 0.07 K/mm3 (0.02-0.50); Eosinophils Percent Auto 0.8 % (1.0-6.0); Hematocrit 45.8 % (35.0-49.0); Hemoglobin 15.2 g/dL (12.0-15.0); Immature Granulocyte Absolute 0.01 K/mm3 (0.00-0.00); Immature Granulocyte Percent A 0.1 % (0.0-0.0); Lymphocytes Absolute Auto 2.08 K/mm3 (1.10-4.50); Lymphocytes Percent Auto 23.6 % (18.0-42.0); Mean Corpuscular HGB Conc 33.2 g/dL (32-36); Mean Corpuscular Hemoglobin 30.2 pg (27.0-31.0); Mean Corpuscular Volume 90.9 fL (78.0-102.0); Mean Platelet Volume 9.8 fl (9.2-11.8); Monocytes Absolute Auto 0.58 K/mm3 (0.10-0.90); Monocytes Percent Auto 6.6 % (2.0-11.0); Neutrophils Absolute Auto 6.04 K/mm3 (1.70-7.20); Neutrophils Percent Auto 68.4 % (50.0-70.0); Platelet Count Result 334 K/mm3 (150-420); Red Blood Count 5.04 M/mm3 (4.20-5.40); Red Cell Distribution Width 12.1 % (11.6-14.4); White Blood Count 8.8 K/mm3 (4.8-10.8)
--- OUTSIDE RECORDS SUMMARY | 2024-03-17 18:08 | XMS_ITS | Referral Summary ---
Author Organization [facility] Address [address] [place] [address] Care Team Providers Care Facilities Maintenance Supervisor Name Role Phone Remberto Menon MD Primary Care Provider Source Comments [facility],non-owned Affiliates and Associated Physician Practices is amultiple site organization consisting of ambulatory clinics and hospital sitesin [place], [place], [place] and [place]. This disclosure is being madepursuant to the Care Everywhere program and may not contain all information available regarding this patient. Last updated 17.[facility] Social History Tobacco Use Types Packs/Day Years Used Date Smoking Tobacco: Never Assessed Sex and Gender Information Value Date Recorded Sex Assigned at Not on file Gender Identity Not on file Sexual Orientation Not on file Plan of Treatment Not on file Care Teams Facilities Maintenance Supervisor Relationship Specialty Start Date End Date Remberto Menon MD [address] [place] [phone] PCP - General 04/13/22
--- OUTSIDE RECORDS SUMMARY | 2024-03-17 18:08 | XMS_ITS | Clinical Summary ---
Author Organization [facility] Address [address] [place] [address] Care Team Providers Care Stucco Laborer Name Role Phone Remberto Menon MD Primary Care Provider [phone] Source Comments [facility],non-owned Affiliates and Associated Physician Practices is amultiple site organization consisting of ambulatory clinics and hospital sitesin [place], [place], [place] and [place]. This disclosure is being madepursuant to the Care Everywhere program and may not contain all information available regarding this patient. Last updated 17.[facility] [employer] Social History Tobacco Use Types Packs/Day Years [...] age to complete this topic Care Teams Stucco Laborer Relationship Specialty Start Date End Date Remberto Menon MD [address] [place] [phone] PCP - General 04/13/22
--- OUTSIDE RECORDS SUMMARY | 2024-03-17 18:08 | XMS_ITS | Clinical Summary ---
Author Organization [facility] Address [facility] [place] [address] Care Team Providers Care Shoe Stitcher Name Role Phone Chely Locke MD Primary Care Provider [phone] Allergies No known active allergies Medications Multiple [...] on file Legal Sex Female 5:51 PM BEVEL FACE STONER AND POLISHER Gender Identity Not on file Sexual Orientation Not on file Last Filed Vital Signs Vital Sign Reading Time Taken Comments Blood Pressure 151/83 01/19/2023 1:16 PM BEVEL FACE STONER AND POLISHER Pulse 81 01/19/2023 1:16 PM BEVEL FACE STONER AND POLISHER Temperature 35.8 C (96.5 F) 01/19/2023 12:15 PM BEVEL FACE STONER AND POLISHER Respiratory Rate 16 01/19/2023 1:16 PM BEVEL FACE STONER AND POLISHER Oxygen Saturation 98% 01/19/2023 1:16 PM BEVEL FACE STONER AND POLISHER Inhaled Oxygen Concentration - - Weight 88.5 kg (195 lb) 01/16/2023 9:09 AM BEVEL FACE STONER AND POLISHER Height 157.5 cm (5' 2 ) 01/16/2023 9:09 AM BEVEL FACE STONER AND POLISHER Body Mass Index 35.67 01/16/2023 9:09 AM BEVEL FACE STONER AND POLISHER Plan of Treatment Health Maintenance Due Date [...] patient's age to complete this topic Insurance Care Teams Shoe Stitcher Relationship Specialty Start Date End Date Chely Locke MD [address] [place] [phone] PCP - General FAMILY PRACTICE 01/10/23
--- OUTSIDE RECORDS SUMMARY | 2024-03-17 18:08 | XMS_ITS | Patient Health Summary ---
Author Organization [facility] Address [address] [place] [address] Care Team Providers Care Insulation Mechanic Name Role Phone Remberto Menon MD Primary Care Provider [phone] Note from [facility],non-owned Affiliates and Associated Physician Practices is amultiple site organization consisting of ambulatory clinics and hospital sitesin [place], [place], [place] and [place]. This disclosure is being madepursuant to the Care Everywhere program and may not contain all information available regarding this patient. Last updated 17.[facility] [employer] Social History Tobacco Use Types Packs/Day Years Used Date Smoking Tobacco: Never Assessed Sex and Gender Information Value Date Recorded Sex Assigned at Not on file Gender Identity Not on file Sexual Orientation Not on file Procedures * SONOGRAM - COMPLETE(Performed 04/15/2010) Results * SONOGRAM - COMPLETE (04/15/2010 8:50 AM MANAGER OF CUSTOMER BILLING) Anatomical Region Laterality Modality Other 04/15/2010 8:50 AM MANAGER OF CUSTOMER BILLING Narrative 04/18/2010 12:26 PM CDT [facility] Evaluation and Treatment Unit PHONE: FAX: Pat. Name: WINDY BLACKWOOD Pat. No: [id number] Study Date: 04/15/2010 8:50am , Age: 07 1980, 29 Pregnancies: 2, Para 0101 LMP: 12/29/2009 GA by LMP: 15w2d GA by US: 13w3d GA Selected: 14w3d (From Known E) KSENIA: 10/11/2010 Referring MD: Layla Forde DO Data Center Architect: Liliana Hickman RDMS/venu Hist/Ind: R/O Head Abnormality MEASUREMENTS & AGE GROWTH EVALUATION Measurement GA Range Srce %for GA Ratios ----- ---- ------- BPD 2.3 cm 13w6d (51z6e-09u6f) Hadl BPD 30% FL/BPD 0.43 HC 9.6 cm 14w3d (53x6p-30g9e) Hadl HC 48% FL/AC 0.18 AC 5.6 cm 12w3d (69l0l-81q3z) Hadl AC <05 HC/AC 1.72 (1.11 - 1.30* FL 1.0 cm 13w0d (82b7c-81h0v) Hadl FL <05 CI 0.71 HL 1.2 cm 13w1d (94k4j-97y2q) Christiano HL 28% GA for sonogram 13w3d (04m5p-73s2a) Weight Estimate: based on (HL,BPD,HC,AC,FL) Avg Weight: [...] 04/18/2010 12:25pm Ordering Provider Unlisted [facility] Care Teams Insulation Mechanic Relationship Specialty Start Date End Date Remberto Menon MD [address] [place] [phone] PCP - General 04/13/22
[2024-03-17 18:22] LABS: Alanine Aminotransferase 25 U/L (14-59); Albumin Level 3.8 g/dL (3.4-5.0); Alkaline Phosphatase 93 U/L (46-116); Anion Gap 6 mmol/L (4-12); Aspartate Amino Transferase 11 U/L (15-37); Bilirubin,Total 0.3 mg/dL (0.00-1.00); Blood Urea Nitrogen 9 mg/dL (7-18); Calcium 9.8 mg/dL (8.5-10.1); Carbon Dioxide 30 mmol/L (21-32); Chloride 103 mmol/L (98-108); Estimated CRCL calculation 74 ml/min; Estimated Glomerular Filt Rate > 60; Glucose 102 mg/dL (70-99); Lipase 24 U/L (16-77); Osmolality Calculated 286 mOsm/kg (285-295); Potassium 4.1 mmol/L (3.5-5.1); Sodium 139 mmol/L (136-145); Total Protein 7.5 g/dL (6.4-8.2)
[2024-03-17 18:23] LABS: Add Urine Microscopic? YES; Appearance Urine Clear (Clear); Bilirubin Urine Negative (Negative); Blood Urine 1+ (Negative); Color Urine Light Yellow (Yellow); Glucose Urine UA Negative (Negative); Ketones Urine Negative (Negative); Leukocyte Esterase Ur Negative LEU/UL (Negative); Nitrate Urine Negative (Negative); Protein Urine Negative (Negative); Specific Grav Ur <= 1.005 (1.010-1.020); Urobilinogen Urine 0.2 mg/dL (0.2-1.0)
[2024-03-17] MEDS: SODIUM CHLORIDE 0.9% IV 1,000 ML 999 ML IV CONT (18:23)
[2024-03-17 18:29] LABS: Squamous Epithelial Cell Urine Rare /hpf (Few); WBC Urine 0-3 /hpf (0-3)
[2024-03-17 18:30] LABS: Bacteria Urine Trace /hpf
[2024-03-17] MEDS: PIPERACILLN/TAZ 3.375GM/NS50ML 3.375 GM/50 ML BAG IVPB (19:07)
[2024-03-17 19:09] VITALS: BP 148/65; PULSE 85; RESP 18; O2SAT 98
--- NOTE | 2024-03-17 19:29 | PC.NURSE ---
Discussed in depth w/ pt by ERP Dr Bullock about need for possible transfer to GI for CT resluts and dx of cholecystitis. Pt not wanting to transfer and not wanting to wait. She wants to go home and f/u w/ her PCP and a GI consult on her own. Pt agreeable to sign AMA at this time.
[2024-03-17 19:41] VITALS: BP 140/78; PULSE 80; RESP 20; TEMP 36.6; O2SAT 97
== END 2024-03-17 19:41 | disposition left against medical advice (07) ==
PROVIDERS: Emergency Provider Emergency Medicine; PCP Family Medicine
DX: K81.0 Acute cholecystitis (principal); Z53.29 Procedure and treatment not carried out because of patient's decision for other reasons
CPT/HCPCS: 36415; 80053; 81001; 83690; 85025; 96365; 96366; 99284; J2543; J7030

== ENCOUNTER 2024-03-24 01:14 | Day surgery (SDC) | payer OTHER, SELFPAY ==
[2024-03-19 10:18] VITALS: BMI 35.3
--- NOTE | 2024-03-19 10:19 | PC.NURSE ---
Report to the Outpatient Waiting Room, entrance under the green pavilion located off [facility], at time _0600_ on date _29-50-2651_. Planned Procedure Time: _0730_.? Time changes happen often and if your time is changed the preop area will call you the afternoon before. - You and your visitor will be asked to self-screen and do not enter if you have any COVID symptoms. Please call surgeon if you need to reschedule. - A mask is optional within the hospital at this time. Patients may have clear liquids (water, carbonated beverages, clear teas, apple juice) until 3 hours prior to surgery with a maximum of 20 ounces. - No food from midnight until time of surgery and no smoking, or chewing tobacco (or any form of nicotine). No chewing gum, candy or mints. Take only the following medications with a SIP of water on the morning of surgery: __None DO NOT STOP ANY OF YOUR OTHER PRESCRIPTION MEDICATIONS PRIOR TO SURGERY EXCEPT THE FOLLOWING Hold all vitamins and supplements for 3 days per anesthesiologist. Medications to discontinue per physician Date to take last dose Please no make-up, nail ghanaian, hairspray, perfume, deodorant, or body powder the day of surgery.? No jewelry (including any body piercings) or valuables the day of surgery, leave them at home.? Please take a shower or bath the night before, or the morning of, surgery with an antibacterial soap.? Wear comfortable, loose fitting clothing.? - Jewelry must be removed prior to entering the operating room.? Rings and piercings that are not removed may be cut off. - The hospital will not accept responsibility for valuables.? - Please leave all valuables, including medications, at home the day of surgery. If you are going home after surgery, a licensed tow motor driver must drive you home.? - NO public transportation without another adult if you receive anesthesia. - We recommend that an adult stay with you for 24 hours following discharge. - We also recommend that you do not drive, make important decision, drink alcoholic beverages, or take any drugs that were not prescribed by your health care provider for at least 24 hours after your discharge time. Follow any additional instructions given to you from your surgeon. Telephone instructions given to __Megan___and asked if any additional questions and then verbalized understanding. Patient advised to call surgeon office or pre surgery nurse liaison [phone] if any additional questions.
[2024-03-24] VITALS (9 sets, daily range): BP systolic 122–151; BP diastolic 66–92; PULSE 58–101; RESP 12–16; TEMP 37.5; O2SAT 98–100; BMI 35.2
--- OUTSIDE RECORDS SUMMARY | 2024-03-24 01:17 | XMS_ITS | Clinical Summary ---
Author Organization [facility] Address [facility] [place] [address] Care Team Providers Care Chute Operator Name Role Phone Chely Locke MD Primary Care Provider [phone] Allergies No known active allergies Medications Multiple [...] on file Legal Sex Female 5:51 PM MANAGER HOME IMPROVEMENT Gender Identity Not on file Sexual Orientation Not on file Last Filed Vital Signs Vital Sign Reading Time Taken Comments Blood Pressure 151/83 01/19/2023 1:16 PM MANAGER HOME IMPROVEMENT Pulse 81 01/19/2023 1:16 PM MANAGER HOME IMPROVEMENT Temperature 35.8 C (96.5 F) 01/19/2023 12:15 PM MANAGER HOME IMPROVEMENT Respiratory Rate 16 01/19/2023 1:16 PM MANAGER HOME IMPROVEMENT Oxygen Saturation 98% 01/19/2023 1:16 PM MANAGER HOME IMPROVEMENT Inhaled Oxygen Concentration - - Weight 88.5 kg (195 lb) 01/16/2023 9:09 AM MANAGER HOME IMPROVEMENT Height 157.5 cm (5' 2 ) 01/16/2023 9:09 AM MANAGER HOME IMPROVEMENT Body Mass Index 35.67 01/16/2023 9:09 AM MANAGER HOME IMPROVEMENT Plan of Treatment Health Maintenance Due Date [...] to complete this topic Insurance Care Teams Chute Operator Relationship Specialty Start Date End Date Chely Locke MD [address] [place] [phone] PCP - General FAMILY PRACTICE 01/10/23
--- OUTSIDE RECORDS SUMMARY | 2024-03-24 01:17 | XMS_ITS | Clinical Summary ---
Author Organization [facility] Address [address] [place] [address] Care Team Providers Care Account Services Analyst Name Role Phone Remberto Menon MD Primary Care Provider [phone] [facility],non-owned Affiliates and Associated Physician Practices is amultiple site organization consisting of ambulatory clinics and hospital sitesin [place] and [place]. This disclosure is being madepursuant to the Care Everywhere program and may not contain all information available regarding this patient. Last updated 17.[facility] [employer] Social History Tobacco Use Types Packs/Day Years [...] age to complete this topic Care Teams Account Services Analyst Relationship Specialty Start Date End Date Remberto Menon MD [address] [place] [phone] PCP - General 04/13/22
--- OUTSIDE RECORDS SUMMARY | 2024-03-24 01:17 | XMS_ITS | Patient Health Summary ---
Author Organization [facility] Address [address] [place] [address] Care Team Providers Care Radial Drill Operator Name Role Phone Remberto Menon MD Primary Care Provider [phone] Note from [facility],non-owned Affiliates and Associated Physician Practices is amultiple site organization consisting of ambulatory clinics and hospital sitesin [place], [place], [place] and [place]. This disclosure is being madepursuant to the Care Everywhere program and may not contain all information available regarding this patient. Last updated 17.[facility] [employer] Social History Tobacco Use Types Packs/Day Years Used Date Smoking Tobacco: Never Assessed Sex and Gender Information Value Date Recorded Sex Assigned at Not on file Gender Identity Not on file Sexual Orientation Not on file Procedures * SONOGRAM - COMPLETE(Performed 04/15/2010) Results * SONOGRAM - COMPLETE (04/15/2010 8:50 AM ICT TEACHER) Anatomical Region Laterality Modality Other 04/15/2010 8:50 AM ICT TEACHER Narrative 04/18/2010 12:26 PM CDT [facility] Evaluation and Treatment Unit PHONE: FAX: Pat. Name: WINDY BLACKWOOD Pat. No: [id number] Study Date: 04/15/2010 8:50am , Age: 07 1980, 29 Pregnancies: 2, Para 0101 LMP: 12/29/2009 GA by LMP: 15w2d GA by US: 13w3d GA Selected: 14w3d (From Known E) KSENIA: 10/11/2010 Referring MD: Layla Forde DO Flyer Maker: Liliana Hickman RDMS/venu Hist/Ind: R/O Head Abnormality MEASUREMENTS & AGE GROWTH EVALUATION Measurement GA Range Srce %for GA Ratios ----- ---- ------- BPD 2.3 cm 13w6d ([id number]) Hadl BPD 30% FL/BPD 0.43 HC 9.6 cm 14w3d ([id number]) Hadl HC 48% FL/AC 0.18 AC 5.6 cm 12w3d ([id number]) Hadl AC <05 HC/AC 1.72 (1.11 - 1.30* FL 1.0 cm 13w0d ([id number]) Hadl FL <05 CI 0.71 HL 1.2 cm 13w1d ([id number]) Christiano HL 28% GA for sonogram 13w3d ([id number]) Weight Estimate: based on (HL,BPD,HC,AC,FL) Avg Weight: [...] 04/18/2010 12:25pm Ordering Provider Unlisted [facility] Care Teams Radial Drill Operator Relationship Specialty Start Date End Date Remberto Menon MD [address] [place] [phone] PCP - General 04/13/22
--- OUTSIDE RECORDS SUMMARY | 2024-03-24 01:17 | XMS_ITS | Referral Summary ---
Author Organization [facility] Address [address] [place] [address] Care Team Providers Care Elastic Yarn Twister Name Role Phone Remberto Menon MD Primary Care Provider Source Comments [facility],non-owned Affiliates and Associated Physician Practices is amultiple site organization consisting of ambulatory clinics and hospital sitesin [place], [place], [place] and [place]. This disclosure is being madepursuant to the Care Everywhere program and may not contain all information available regarding this patient. Last updated 17.[facility] Social History Tobacco Use Types Packs/Day Years Used Date Smoking Tobacco: Never Assessed Sex and Gender Information Value Date Recorded Sex Assigned at Not on file Gender Identity Not on file Sexual Orientation Not on file Plan of Treatment Not on file Care Teams Elastic Yarn Twister Relationship Specialty Start Date End Date Remberto Menon MD [address] [place] [phone] PCP - General 04/13/22
[2024-03-24] MEDS: LACTATED RINGERS 1,000 ML 30 ML IV CONT ×2 (06:15→08:26)
[2024-03-24] MEDS: KETOROLAC 15 MG/ML VIAL (*BKC) IV PUSH (06:37)
[2024-03-24] MEDS: ACETAMINOPHEN 500 MG TABLET 1000 MG PO (06:37)
--- NOTE | 2024-03-24 06:46 | WPDANESEPPF ---
Anes - Initial Pre Proc Eval Procedure: Operation Date: 03/24/24 07:30 Proposed Procedures p Laparoscopic Cholecystectomy - Suyapa Childers MD Date/Time: 03/24/24 06:46 Surgeon: Suyapa Childers MD Pre Op Diagnosis: Acute Calculous Cholecystits Patient Data Age: 43 Gender: F Height: 1.57 m Weight: 87.7 kg Allergies Allergy/AdvReac Type Severity Reaction Status Date / Time No Known Allergies Allergy Unknown Verified 03/24/24 06:46 Home Medications ?Medication ?Instructions ?Recorded ?Confirmed ?Type ciprofloxacin HCl 500 mg tablet 500 mg PO Q12H #20 tabs 03/17/24 03/19/24 Rx (Cipro) cholecalciferol (vitamin D3) 25 1,000 unit PO DAILY 03/19/24 03/19/24 History mcg (1,000 unit) capsule (Vitamin D3) multivitamin (Daily Multi-Vitamin 1 tablet PO DAILY 03/19/24 03/19/24 History tablet) Laboratory Tests 03/24/24 06:34 Total Bilirubin Pending Direct Bilirubin Pending AST Pending ALT Pending Alkaline Phosphatase Pending Total Protein Pending Albumin Pending Amylase Pending Lipase Pending Patient hx anesthesia problems: none Family hx anesthesia problems: none Results Review: All pre-operative results and documents have been reviewed as part of the pre-operative evaluation. [facility] Past Medical History Medical History (Updated 03/19/24 @ 09:30 by Cathy Beltran [facility]) Herniated disc Screening mammogram, encounter for History of chlamydia 2005 Obesity Alternating constipation and diarrhea Family history of Forde syndrome RUQ pain Cholelithiasis Surgical History Surgical History History of endometrial ablation History of tubal ligation History of dilation and curettage demise Delivery by section xs 2 H/O colposcopy with cervical biopsy Status post hysteroscopic ablation of endometrium Family History Family History Mother Forde syndrome Other Carcinoma of colon Social History Social History (Updated 03/19/24 @ 09:02 by Elo Da Silva MA) Smoking status: Never smoker Alcohol intake: current Alcohol use details: socially 5 per month Substance use: never Substance use type: does not use Do You Feel Safe in your Home?: Yes Lack of Transportation: No Lack of Food: Never True Current Housing: I Have Housing Concerned About Future Housing: No Difficulty Paying Gas/Electric Bills: No Difficulty Paying for Meds: No Currently Unemployed: No Education: Bachelor's Degree Difficulty w/ Childcare or Family Care: No Living arrangements: with family Additional living arrangements comments: Occupation/Education: occupation Additional occupation/education comments: teacher Gender identity (if verbalized by the patient): Female Sexual Orientation (if Verbalized by the Patient): Straight or Heterosexual Spiritual care concerns: No Anes - Eval Final PreProcedure Day of Procedure 03/24/24 06:46 Patient weight: obese Heart: regular rate and rhythm Lungs: clear to auscultation Airway: Mallampati scale class II Neurological: alert and oriented Last oral intake: >/= 8 hours ASA classification: II Emergent: no Anesthetic plan: proceed Anesthesia type and monitoring: general ETT and standard monitoring Results Review: All pre-operative results and documents have been reviewed as part of the pre-operative evaluation. Informed Consent: The patient's anesthetic plan and its attendant risks and benefits were discussed with the patient/family/POA. Questions were solicited and answers provided to the satisfaction of the patient/family/POA.
[2024-03-24 06:50] LABS: Alanine Aminotransferase 23 U/L (6-35); Albumin Level 4.3 g/dL (3.5-5.1); Alkaline Phosphatase 81 U/L (38-126); Amylase 58 U/L (30-110); Aspartate Amino Transferase 21 U/L (14-36); Bilirubin,Total 0.8 mg/dL (0.2-1.3); Lipase 53 U/L (23-300)
--- NOTE | 2024-03-24 07:20 | WPDHPUPDATE1 ---
History and Physical Update Update Date/Time: 03/24/24 07:20 History and Physical has been reviewed, including an updated exam of the patient. There are NO changes in the patient's condition. Risks, benefits, and alternatives have been discussed and questions answered. Patient agrees to proceed with procedure.
[2024-03-24] MEDS: ceFAZolin SODIUM 1 GM VIAL IV PUSH (07:44)
[2024-03-24] MEDS: BUPIVACAINE/EPINEPHRINE 0.5% 50 ML VIAL 30 ML INFILTRATE (07:45)
--- NOTE | 2024-03-24 08:28 | W.PM.PROC2 ---
Procedure Note - Detailed Date of Procedure 03/24/24 Pre-op Diagnosis Acute Calculous Cholecystits Post-op Diagnosis Same Procedure Performed Laparoscopic cholecystectomy Surgeon Suyapa Childers MD Anesthesia General Indications 43-year-old female presenting to outside hospital with severe upper abdominal pain. Workup consistent with acute cholecystitis with cholelithiasis. Patient is now set up for interval cholecystectomy. Findings Moderate cholecystitis Description of Procedure The patient was taken to the operating room placed in the supine position. After adequate induction of general anesthesia, the patient was prepped and draped in normal sterile fashion. A time-out was then performed to verify the patient's identity as well as the procedure being performed. I then made a 5 mm incision in the infraumbilical region. Through this, a Veress needle was placed into the peritoneal cavity and CO2 gas was then insufflated. After adequate pneumoperitoneum was achieved, the Veress needle was removed and a 5 mm optiview trocar was placed through this incision under direct visualization. I then placed the laparoscope through this trocar site and under direct visualization placed a further 12 mm subxiphoid port as well as 2 additional 5 mm ports in the right upper abdomen. The gallbladder was then identified and was noted to be moderately inflamed and distended. I was able to place a grasper at the dome of the gallbladder and this was retracted anterior and cephalad up over the liver. A 2nd retractor was then placed at the infundibulum and retracted laterally, this allowed visualization of the triangle of Calot. I then was able to visualize the cystic duct in its entirety from its proximal insertion into the gallbladder, to its distal junction with the common hepatic/common bile duct junction. At this point, I carefully skeletonized the proximal cystic duct with the [place] dissector. I then clipped and transected the proximal cystic duct. Next I visualized the cystic artery. Again the artery was skeletonized, clipped, and transected. I then used the Bovie cautery to take down the peritoneal attachments of the gallbladder off the liver bed. Once the gallbladder specimen was completely detached, an endo-pouch was placed through the 12 mm port site. I then placed the gallbladder specimen into the Endo pouch and removed the endo-pouch from the 12 mm port site. The specimen will now be sent to pathology for further review. I then copiously irrigated the right upper quadrant. Hemostasis was noted in the liver bed, the clips were noted to be in good position on both the cystic duct stump and the cystic artery stump. No other pathology was noted in the right upper quadrant. I then moved the laparoscope to the subxiphoid port. No iatrogenic injury or other pathology was noted in the lower abdomen. I then closed the 12 mm trocar site under direct visualization using the [place] cone and 0 Vicryl suture. At this point, the abdomen was desufflated and all ports removed. All port sites were then closed with 4.O Monocryl subcuticular sutures. Dermabond was placed on each incision. The patient tolerated the procedure well, was extubated in the operating room postoperative and will be transferred to the recovery room in stable condition Estimated Blood Loss 10 Drains No Packing No Pathology Yes Complications No immediate complications Condition Stable Disposition PACU [facility] Billing Surgery - Charge Forward: Surgery Billing
[2024-03-24] MEDS: fentaNYL CITRATE INJ (*CRX) 100 MCG/2 ML VIAL 25 MCG IV PUSH ×4 (08:37→08:59)
[2024-03-24 13:36] LABS: BEDSIDEPREGUCG Negative (Negative)
== END 2024-03-24 10:28 | disposition home or self-care (01) ==
PROVIDERS: PCP Family Medicine; Visit Provider Surgery
PROC: 0FT44ZZ Resection of Gallbladder, Percutaneous Endoscopic Approach (ICD-10-PCS; CPT 47562; principal; 2024-03-24 07:30)
DX: K80.00 Calculus of gallbladder with acute cholecystitis without obstruction (principal); E66.9 Obesity, unspecified; Z68.35 Body mass index [BMI] 35.0-35.9, adult; Z98.890 Other specified postprocedural states; Z98.51 Tubal ligation status; Z98.891 History of uterine scar from previous surgery; Z80.0 Family history of malignant neoplasm of digestive organs
CPT/HCPCS: 47562; 36415; 80076; 82150; 83690; 88304; A9270; J0690; J1100; J1885; J2003; J2250; J2405; J2704; J3010; J7030; J7120